=== PATIENT | male | born 1995 | race Hispanic/Latino ===

== ENCOUNTER 2020-09-14 09:24 | Emergency (ER) | payer SELFPAY ==
[2020-09-14] MEDS ORDERED: KETOROLAC 60 MG VIAL (30MG/ML) ONE (09:56)
== END 2020-09-14 10:29 | disposition home or self-care (01) ==
LOC: EDH 09:24
DX: M75.21 Bicipital tendinitis, right shoulder (principal)
CPT/HCPCS: 73030; 96372; 99283; J1885